=== PATIENT | male | born 1990 | race Two or more races ===

== ENCOUNTER 2024-04-05 00:47 | Emergency (ER) | payer OTHER ==
[~2024-04-05] VITALS: Ht 188 cm; Wt 97.5 kg
[2024-04-05] MEDS ORDERED: NAPHAZOLINE HCL/PHENIRAMINE 20 DR/ML DROPS OP STA (01:39)
[2024-04-05] MEDS ORDERED: SOD BORATE/BORIC AC/WATER/NACL 120 ML BOTTLE OP STA (01:40)
[2024-04-05] MEDS ORDERED: GENTAMICIN SULFATE 0.15 MG/DR DROPS 5ML OP STA (01:40)
[2024-04-05] MEDS ORDERED: CLEAR EYES REDN30 ML OP (02:43)
[2024-04-05] MEDS ORDERED: GENTAMICIN SULFA5 ML OP (02:43)
== END 2024-04-05 02:50 ==
LOC: ER 00:47
DX: Z77.098 Contact with and (suspected) exposure to other hazardous, chiefly nonmedicinal, chemicals (principal)